=== PATIENT | female | born 1970 | race Caucasian/White ===

== ENCOUNTER 2017-01-19 16:33 | Emergency (ER) | payer MEDICAID ==
[~2017-01-19] VITALS: Ht 170.2 cm; Wt 95.3 kg
[2017-01-19 16:44] VITALS: BP 130/90
--- NOTE | 2017-01-19 16:51 | NUR ---
PT BIB SELF C/O LEFT EAR PAIN X 2 DAYS; PT STATES "FEELS LIKE SOMETHING IS IN IT".PT IT STARTED 2 DAYS AGO.PT STATES SHE PUT OLIVE OIL IN HER LEFT EAR TO RELIEVED SYMPTOM BUT IT DIDN'T HELP.PAIN SCALE OF 7/10 AND DESCRIBED IT ACHING AND THROBBING.PT STATES THAT SOMETHING IS BLOCKING HER HEARING.DENIES ANY MEDICAL HX;DENIES EAR DISCHARGES/CP/SOB/COUGH/RUNNY NOSE/FEVER/.AAOX4;NO ACUTE DISTRESS NOTED AT THIS TIME;NEEDS ATTENDED.SAFETY MEASURES DONE.
--- NOTE | 2017-01-19 16:51 | NUR ---
Note undone in EDM - 01/19/17 at 1700 by [facility] PT BIB SELF C/O LEFT EAR PAIN X 2 DAYS; PT STATES "FEELS LIKE SOMETHING IS IN IT".PT IT STARTED 2 DAYS AGO.PT STATES SHE PUT OLIVE OIL IN HER LEFT EAR TO RELIEVED SYMPTOM BUT IT DIDN'T HELP.PAIN SCALE OF 7/10 AND DESCRIBED IT ACHING AND THROBBING.DENIES ANY MEDICAL HX;DENIES CP/SOB/COUGH/RUNNY NOSE/FEVER/.AAOX4;NO ACUTE DISTRESS NOITED AT THIS TIME;NEEDS ATTENDED.SAFETY MEASURES DONE.
--- NOTE | 2017-01-19 16:58 | NUR ---
Note undone in EDM - 01/19/17 at 1700 by [facility] Patient discharged with v/s stable. Written and verbal after care instructions given and explained.Patient alert, oriented and verbalized understanding of instructions. Ambulatory with steady gait. All questions addressed prior to discharge. ID band removed. Patient advised to follow up with PMD. Rx of IBUPROFEN,NITROFURANTOIN AND PHENAZOPYRIDINE given. Patient educated on indication of medication including possible reaction and side effects. Opportunity to ask questions provided and answered.ADVISED PT TO INCREASE FLUID INTAKE AND PT AGREED TO IT.
--- NOTE | 2017-01-19 17:15 | NUR ---
TUBE LANCER EVALUATING PT
[2017-01-19 17:21] VITALS: BP 134/92
--- NOTE | 2017-01-19 17:21 | NUR ---
Patient discharged with v/s stable. Written and verbal after care instructions given and explained. Patient alert, oriented and verbalized understanding of instructions. Ambulatory with steady gait. All questions addressed prior to discharge. ID band removed. Patient advised to follow up with PMD. Rx of ACETAMINOPHEN AND CORTISPORIN OTIC SUPENSION given. Patient educated on indication of medication including possible reaction and side effects. Opportunity to ask questions provided and answered.
== END 2017-01-19 17:21 | disposition home or self-care (01) ==
LOC: MED 16:33
DX: H60.92 Unspecified otitis externa, left ear (principal); R03.0 Elevated blood-pressure reading, without diagnosis of hypertension

== ENCOUNTER 2018-05-11 01:33 | Emergency (ER) | payer MEDICAID ==
[~2018-05-11] VITALS: Ht 170.2 cm; Wt 107.5 kg
[2018-05-11 01:40] VITALS: BP 130/86
--- NOTE | 2018-05-11 01:47 | NUR ---
amb to bed 12.
[2018-05-11] MEDS ORDERED: SULFAMETH/TRIMETH DS 800/160MG 1 TAB PO ONE (01:50)
--- NOTE | 2018-05-11 01:55 | NUR ---
PT CAME IN W/C/O Back of right ankle red and swollen around a 2.25x0.5 WOUND NOTED. PT STATES SHE WENT TO HER PCP AND RECIEVED ANTIBIOTICS BUT THE COURSE IS NOT FINISHED AND SHE IS STILL CONCERNED ABOUT IT. PT STATES SHE HAS 5/10 PAIN THAT DOES NOT RADIATE BUT IT ACHES IN R ANKLE. PT AAOX4, NO S/S OF DISTRESS NOTED. ER MADE AWARE
[2018-05-11 02:05] VITALS: BP 126/88
--- NOTE | 2018-05-11 02:07 | NUR ---
Patient discharged with v/s stable. Written and verbal after care instructions given and explained. Patient alert, oriented and verbalized understanding of instructions. Ambulatory with steady gait. All questions addressed prior to discharge. ID band removed. Patient advised to follow up with PMD. Rx of BACTRIM 800MG-160MG given. Patient educated on indication of medication including possible reaction and side effects. Opportunity to ask questions provided and answered.
[2018-05-13] MEDS ORDERED: CEPH250C16 PO (10:49)
[2018-05-13] MEDS ORDERED: ASCO1CAP75 PO (10:49)
[2018-05-13] MEDS ORDERED: CLIN150C1 PO (14:20)
== END 2018-05-11 02:07 | disposition home or self-care (01) ==
LOC: MED 01:33
DX: L03.115 Cellulitis of right lower limb (principal)
CPT/HCPCS: 99283